=== PATIENT | female | born 1985 | race American Indian/Alaskan Native ===

== ENCOUNTER 2020-01-21 16:53 | Emergency (ER) | payer SELFPAY ==
[2020-01-21 17:12] VITALS: BP 113/58
[2020-01-21] MEDS ORDERED: KETOROLAC 10 MG TAB PO ONE (18:58)
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
== END 2020-01-21 21:00 | disposition home or self-care (01) ==
LOC: ED 16:53
DX: S16.1XXA Strain of muscle, fascia and tendon at neck level, initial encounter (principal); R51 Headache; J45.909 Unspecified asthma, uncomplicated; F17.200 Nicotine dependence, unspecified, uncomplicated; Z79.899 Other long term (current) drug therapy; V49.49XA Driver injured in collision with other motor vehicles in traffic accident, initial encounter; Y93.89 Activity, other specified; Y92.410 Unspecified street and highway as the place of occurrence of the external cause; Y99.8 Other external cause status
CPT/HCPCS: 72040